=== PATIENT | male | born 1965 | race African-American/Black ===

== ENCOUNTER 2023-02-19 09:06 | Emergency (ER) | payer MEDICAID, OTHER ==
[2023-02-19] MEDS ORDERED: NOREPINEPHRINE 8 MG/250ML KIT 250 ML IV ONE (09:15)
== END 2023-02-19 14:40 ==
LOC: ER 09:06 → EDBD 09:06 → EDUNIT# 09:06 → ER 14:40
DX: I46.9 Cardiac arrest, cause unspecified (principal)
CPT/HCPCS: 31500; 92950